=== PATIENT | female | born 1950 | race Caucasian/White ===

== ENCOUNTER 2020-05-05 08:57 | Emergency (ER) | payer MEDICARE ==
[~2020-05-05] VITALS: Ht 152.4 cm; Wt 68.1 kg
[~2020-05-05 08:57] MED LIST: AC325T PO; ASCO500C14 PO; ASPI-587 PO; FLUC200T45 PO; OLME20TA21 PO; PNT40TEC PO; SCR1T1 PO; THYR60TA2 PO; TRAZ-144 PO; UBID50TA3 PO
[2020-05-05 09:50] LABS: BASOPHILS % (AUTO) 0 % (0-10); EOSINOPHILS # (AUTO) 0.2 10^3/uL (0.0-0.3); EOSINOPHILS % (AUTO) 2 % (0-10); HEMATOCRIT 38 % (35-52); HEMOGLOBIN 11.8 g/dL (11.5-16.0); LYMPHOCYTES # (AUTO) 2.5 10^3/uL (1.0-4.0); LYMPHOCYTES % (AUTO) 24 % (12-44); MEAN CORPUSCULAR HEMOGLOBIN 28 pg (25-34); MEAN CORPUSCULAR HGB CONC 31 g/dL (32-36); MEAN CORPUSCULAR VOLUME 89 fL (80-99); MEAN PLATELET VOLUME 9.2 fL (9.0-12.2); MONOCYTES # (AUTO) 0.5 10^3/uL (0.0-1.0); MONOCYTES % (AUTO) 4 % (0-12); NEUTROPHILS # (AUTO) 7.4 10^3/uL (1.8-7.8); NEUTROPHILS % (AUTO) 70 % (42-75); PLATELET COUNT 318 10^3/uL (130-400); WHITE BLOOD COUNT 10.7 10^3/uL (4.3-11.0)
[2020-05-05 09:51] LABS: ALBUMIN 4.3 GM/DL (3.2-4.5); CHLORIDE 104 MMOL/L (98-107); POTASSIUM 3.9 MMOL/L (3.6-5.0); SODIUM 139 MMOL/L (135-145)
[2020-05-05 09:52] LABS: CALCIUM 9.3 MG/DL (8.5-10.1)
[2020-05-05 09:54] LABS: GLUCOSE 141 MG/DL (70-105); TOTAL PROTEIN 7.6 GM/DL (6.4-8.2)
[2020-05-05 09:55] LABS: BILIRUBIN,TOTAL 0.3 MG/DL (0.1-1.0); CARBON DIOXIDE 24 MMOL/L (21-32)
[2020-05-05 09:57] LABS: ALKALINE PHOSPHATASE 99 U/L (40-136); GFR ESTIMATED 40
[2020-05-05 09:58] LABS: BUN/CREATININE RATIO 12
--- NOTE | 2020-05-05 09:59 | Diagnostic Imaging Report ---
EXAMINATION: Chest radiograph, portable AP view. DATE: 05/05/2020 9:56 AM INDICATION: 69-year-old female, hypertension. COMPARISON: May 03, 2012. FINDINGS: Stable overall appearance of the cardiomediastinal silhouette. There is no identified pneumothorax. There is no large pleural effusion. There is no identified focal airspace consolidation. IMPRESSION: No identified acute cardiopulmonary abnormality. Dictated by: Dictated on workstation # [id number]
[2020-05-05 10:00] LABS: ALANINE AMINOTRANSFERASE 14 U/L (0-55); MAGNESIUM 2.1 MG/DL (1.6-2.4)
[2020-05-05] MEDS ORDERED: amLODIPine 5 MG (NORVASC) TAB PO ONE (10:30)
--- NOTE | 2020-05-05 10:34 | ED Cardiac General ---
History of Present Illness General Chief Complaint: Cardiac/General Problems Stated Complaint: HIGH BLOOD PRESSURE,FEELING WEIRD Nursing Triage Note: AMB TO ROOM REPORTS HAS CNCERNS WITH HER BP SINCE WEDNESDAY . HER SYSTOLIC HAS BEEN IN 180 WAS TAKEN OFF LORSARTIN 25MG DID TAKE TODAY. CONCERN BECAUSE SHE HAS POOR KIDNEY FUNCTION AND JUST NOT FEELING WELL. Source: patient Exam Limitations: no limitations History of Present Illness Date Seen by Provider: May 05, 2020 Time Seen by Provider: 09:34 Initial Comments Here with report of feeling weird this morning and found her systolic blood pressure to be 180. She did take a half a dose of her losartan this morning. She was worried about her kidney function as she has history of kidney disease and has had problems with that previously. She was seen at her providers office earlier this week for concerns of UTI and that was found to be negative although did have a yeast infection. She did take the medicine for that. Initial blood pressure in the 160s here. Denies chest pain, nausea, vomiting, weakness or other concerns otherwise. Timing/Duration: changing over time, intermittent, 1-2 days Location: other (No pain) Activities at Onset: none Prior CP/Workup: stress test Modifying Factors: improves with rest NTG SL SCHOOL GUIDANCE COUNSELOR: No ASA po SCHOOL GUIDANCE COUNSELOR: No Associated Systoms: No Chest Pain, No Cough, No Fever/Chills, No Nausea/Vomiting, No Shortness of Air, No Weakness Allergies and Home Medications Allergies Coded Allergies: Penicillins (Unverified Allergy, Unknown, 09/21/14) nitrofurantoin (Unverified Allergy, Unknown, 10/25/13) Home Medications Ascorbic Acid 500 Mg Capsule.sa, 500 MG PO DAILY, (Reported) Thyroid,Pork 60 Mg Tablet, 60 MG PO DAILY, (Reported) Trazodone Hcl 50 Mg Tablet, 100 MG PO DAILY, (Reported) Ubidecarenone 50 Mg Tab.chew, 50 MG PO DAILY, (Reported) Patient Home Medication List Home Medication List Reviewed: Yes Review of Systems Review of Systems Constitutional: see HPI; No chills, No fever EENTM: No Symptoms Reported Respiratory: Denies Cough, Denies Shortness of Air Cardiovascular: Denies Chest Pain, Denies Edema Gastrointestinal: Denies Abdominal Pain, Denies Nausea, Denies Vomiting Genitourinary: See HPI Musculoskeletal: no symptoms reported Skin: no symptoms reported Psychiatric/Neurological: See HPI, Anxiety; Denies Headache All Other Systems Reviewed Negative Unless Noted: Yes Past Qhitbmz-Inoedi-Ttcpjo Hx Past Med/Social Hx: Reviewed Nursing Past Med/Soc Hx Patient Social History Alcohol Use: Denies Use Smoking Status: Never a Smoker Recent Infectious Disease Expo: No Past Medical History Surgeries: No Respiratory: No Cardiac: No Neurological: No Genitourinary: No Gastrointestinal: No Gastroesophageal Reflux Musculoskeletal: No Endocrine: Yes Psychosocial: No Family Medical History Reviewed Nursing Family Hx No Pertinent Family Hx Physical Exam Vital Signs Vital Signs - First Documented 05/05/20 09:06 Temp 36.9 Pulse 73 Resp 18 B/P (MAP) 168/81 (110) Pulse Ox 100 O2 Delivery Room Air Capillary Refill : Less Than 3 Seconds Height, Weight, BMI Height: 5'" Weight: 157lbs. oz. 71.826406yp; 29.00 BMI Method: General Appearance: No Apparent Distress, WD/WN HEENT: PERRL/EOMI, Pharynx Normal Neck: Non Tender, Supple Respiratory: Lungs Clear, Normal Breath Sounds Cardiovascular: Regular Rate, Rhythm, No Murmur Gastrointestinal: Non Tender, Soft Extremity: Normal Range of Motion, Non Tender, No Calf Tenderness, No Pedal Edema Neurologic/Psychiatric: Alert, Oriented x3 Skin: Normal Color, Warm/Dry Progress/Results/Core Measures Results/Orders Lab Results Laboratory Tests Test 05/05/20 09:21 Range/Units White Blood Count 10.7 4.3-11.0 10^3/uL Red Blood Count 4.26 3.80-5.11 10^6/uL Hemoglobin 11.8 11.5-16.0 g/dL Hematocrit 38 35-52 % Mean Corpuscular Volume 89 80-99 fL Mean Corpuscular Hemoglobin 28 25-34 pg Mean Corpuscular Hemoglobin Concent 31 L 32-36 g/dL Red Cell Distribution Width 13.6 10.0-14.5 % Platelet Count 318 130-400 10^3/uL Mean Platelet Volume 9.2 9.0-12.2 fL Immature Granulocyte % (Auto) 1 % Neutrophils (%) (Auto) 70 42-75 % Lymphocytes (%) (Auto) 24 12-44 % Monocytes (%) (Auto) 4 0-12 % Eosinophils (%) (Auto) 2 0-10 % Basophils (%) (Auto) 0 0-10 % Neutrophils # (Auto) 7.4 1.8-7.8 10^3/uL Lymphocytes # (Auto) 2.5 1.0-4.0 10^3/uL Monocytes # (Auto) 0.5 0.0-1.0 10^3/uL Eosinophils # (Auto) 0.2 0.0-0.3 10^3/uL Basophils # (Auto) 0.0 0.0-0.1 10^3/uL Immature Granulocyte # (Auto) 0.1 0.0-0.1 10^3/uL Sodium Level 139 135-145 MMOL/L Potassium Level 3.9 3.6-5.0 MMOL/L Chloride Level 104 98-107 MMOL/L Carbon Dioxide Level 24 21-32 MMOL/L Anion Gap 11 5-14 MMOL/L Blood Urea Nitrogen 16 7-18 MG/DL Creatinine 1.30 0.60-1.30 MG/DL Estimat Glomerular Filtration Rate 40 BUN/Creatinine Ratio 12 Glucose Level 141 H 70-105 MG/DL Calcium Level 9.3 8.5-10.1 MG/DL Corrected Calcium 9.1 8.5-10.1 MG/DL Magnesium Level 2.1 1.6-2.4 MG/DL Total Bilirubin 0.3 0.1-1.0 MG/DL Aspartate Amino Transf (AST/SGOT) 19 5-34 U/L Alanine Aminotransferase (ALT/SGPT) 14 0-55 U/L Alkaline Phosphatase 99 40-136 U/L Troponin I < 0.028 <0.028 NG/ML Total Protein 7.6 6.4-8.2 GM/DL Albumin 4.3 3.2-4.5 GM/DL My Orders Orders - RALF COLE MD Ed Iv/Invasive Line Start (05/05/20 09:42) Ekg Tracing (05/05/20 09:42) Monitor-Rhythm Ecg Trace Only (05/05/20 09:42) Cbc With Automated Diff (05/05/20 09:42) Comprehensive Metabolic Panel (05/05/20 09:42) Magnesium (05/05/20 09:42) Troponin I (05/05/20 09:42) Chest 1 View, Ap/Pa Only (05/05/20 09:42) Vital Signs/I&O 05/05/20 09:06 Temp 36.9 Pulse 73 Resp 18 B/P (MAP) 168/81 (110) Pulse Ox 100 O2 Delivery Room Air Blood Pressure Mean: 110 Progress Progress Note : Progress Note Seen and evaluated. IV, labs, EKG and chest x-ray ordered. Monitor patient. 1030: No acute findings overall. Serum creatinine 1.30 with GFR at 40. Blood pressure was 160s systolic but dropped to 147 systolic on her losartan. We will switch her to amlodipine and she will follow-up with Dr. Ramirez. I will write her for 2 weeks of amlodipine [address] Ramirez can adjust from there. I will send a copy of the chart to her. Overall feeling better. Discharged home with return precautions. Patient verbalized understanding of instructions and agreement with plan. Initial ECG Impression Date: May 05, 2020 Initial ECG Impression Time: 09:28 Initial ECG Rate: 73 Initial ECG Rhythm: Normal Sinus Comment Sinus rhythm with normal axis. No evidence of ST elevation FL. No previous available for comparison. Interpreted by me. Diagnostic Imaging Diagonstic Imaging: Xray Plain Films/CT/US/NM/MRI: chest Comments [facility], [facility]. [place], [place] NAME: CRISTOPHER MARTINEZ [facility] REC#: [id number] PT STATUS: REG ER : 1950 PHYSICIAN: RALF COLE MD ADMIT DATE: 05/05/20/ER Signed Date of Exam:05/05/20 CHEST 1 VIEW, AP/PA ONLY EXAMINATION: Chest radiograph, portable AP view. DATE: 05/05/2020 9:56 AM INDICATION: 69-year-old female, hypertension. COMPARISON: May 03, 2012. FINDINGS: Stable overall appearance of the cardiomediastinal silhouette. There is no identified pneumothorax. There is no large pleural effusion. There is no identified focal airspace consolidation. IMPRESSION: No identified acute cardiopulmonary abnormality. Dictated by: Dictated on workstation # [id number] Dict: 05/05/20 0957 Trans: 05/05/20 100 [facility] [id number] Interpreted by: SUZANNE DAVID MD Electronically signed by: SUZANNE DAVID MD 05/05/20 1001 Departure Impression Primary Impression: Uncontrolled hypertension Disposition: HOME, SELF-CARE Condition: Improved Departure-Patient Inst. Decision time for Depature: 10:39 Referrals: JACK RAMIREZ MD (PCP/Family) Primary Care Physician Patient Instructions: High Blood Pressure (DC) Add. Discharge Instructions: All discharge instructions reviewed with patient and/or family. Voiced understanding. Stop losartan. Take other medications as directed. Follow-up with Dr. Ramirez for recheck and further evaluation. Call her office tomorrow morning for rechec k appointment. Return for worse pain, fever, vomiting, weakness, breathing problems or other concerns as needed. Scripts Amlodipine Besylate (Amlodipine Besylate) 5 Mg Tablet 5 MG PO DAILY for 14 Days, #14 TAB 0 Refills Prov: RALF COLE MD 05/05/20 Copy Copies To 1: JACK RAMIREZ MD, TIMOTHY D MD May 05, 2020 10:34
[2020-05-05] MEDS ORDERED: AMLO-250 PO (10:40)
[2020-05-05 10:47] VITALS: BP 151/81
== END 2020-05-05 10:59 | disposition home or self-care (01) ==
LOC: EDUNIT# 08:57 → ER 08:59
DX: I10 Essential (primary) hypertension (principal); Z88.0 Allergy status to penicillin; Z88.8 Allergy status to other drugs, medicaments and biological substances
CPT/HCPCS: 36415; 71045; 80053; 83735; 84484; 85025; 93005; 93041

== ENCOUNTER → 2020-07-11 | Outpatient (CLI) | payer SELFPAY ==
[~2020-07-11] MED LIST changes: +AMLO-250 PO
--- NOTE | 2020-07-11 13:20 | Diagnostic Imaging Report ---
CT cardiac calcium score INDICATION: Hypertension hyperlipidemia There are no prior CT cardiac calcium scores exams available for comparison. Routine images of the heart were obtained. The total calcium score is 2.17 (please see attached report) The images through the thorax show that the heart is within normal limits for size. The aorta is not abnormally dilated. There is no obvious mediastinal or hilar adenopathy. The lungs, where visualized are generally clear. There is no sign of failure, pneumonia or a pleural effusion. There is no parenchymal lung mass identified either. The images through the upper abdomen again show the prominent hiatal hernia that was identified on the prior CT abdomen/pelvis exam of 09/21/2014. The hernia measures approximately 5.3 x 6.3 cm. There is no acute abnormality of the visualized upper abdomen. The bone windows are unremarkable for a fracture or for a destructive lesion. There is no obvious breast mass. IMPRESSION: 1. The total calcium score is 2.17. Please see attached report. 2. There is no acute cardiopulmonary abnormality identified. 3. The large hiatal hernia seen previously is again evident and not significantly changed. Dictated by: Dictated on workstation # [id number]
== END ==
LOC: RAD FS 10:18
PROVIDERS: ATTEND Nurse Practitioner Family
DX: I10 Essential (primary) hypertension (principal); E78.5 Hyperlipidemia, unspecified; K44.9 Diaphragmatic hernia without obstruction or gangrene
CPT/HCPCS: 75571

== ENCOUNTER → 2021-03-21 | Outpatient (CLI) | payer MEDICARE ==
[2021-03-21 09:52] LABS: HEMATOCRIT 38 % (35-52); HEMOGLOBIN 12.2 g/dL (11.5-16.0); MEAN CORPUSCULAR HEMOGLOBIN 28 pg (25-34); MEAN CORPUSCULAR HGB CONC 32 g/dL (32-36); MEAN CORPUSCULAR VOLUME 89 fL (80-99); MEAN PLATELET VOLUME 9.2 fL (9.0-12.2); PLATELET COUNT 283 10^3/uL (130-400); WHITE BLOOD COUNT 10.2 10^3/uL (4.3-11.0)
[2021-03-21 10:14] LABS: ALBUMIN 4.3 GM/DL (3.2-4.5)
[2021-03-21 10:15] LABS: CHLORIDE 106 MMOL/L (98-107); SODIUM 139 MMOL/L (135-145)
[2021-03-21 10:16] LABS: CALCIUM 9.6 MG/DL (8.5-10.1)
[2021-03-21 10:17] LABS: GLUCOSE 126 MG/DL (70-105); TOTAL PROTEIN 7.9 GM/DL (6.4-8.2)
[2021-03-21 10:18] LABS: CARBON DIOXIDE 21 MMOL/L (21-32)
[2021-03-21 10:19] LABS: BILIRUBIN,TOTAL 0.4 MG/DL (0.1-1.0)
[2021-03-21 10:20] LABS: ALKALINE PHOSPHATASE 93 U/L (40-136)
[2021-03-21 10:21] LABS: CREATININE SERUM 1.71 MG/DL (0.60-1.30); GFR ESTIMATED 29
[2021-03-21 10:22] LABS: BUN/CREATININE RATIO 18
[2021-03-21 10:23] LABS: ALANINE AMINOTRANSFERASE 38 U/L (0-55)
[2021-03-21 10:24] LABS: CREATINE KINASE 65 U/L (29-168)
--- NOTE | 2021-03-21 11:22 | Diagnostic Imaging Report ---
INDICATION: Chest pain EXAMINATION: 2 view chest 03/21/2021 COMPARISON: 05/03/2012 FINDINGS: There is a small to moderate hiatal hernia. The lungs and pleural spaces clear. There is no pneumothorax. The heart and pulmonary vasculature normal. IMPRESSION: 1. No acute cardiopulmonary process. Dictated by: Dictated on workstation # [id number]
== END ==
LOC: CARD 10:00
PROVIDERS: ATTEND Nurse Practitioner Family
DX: R07.9 Chest pain, unspecified (principal)
CPT/HCPCS: 36415; 71046; 80053; 82550; 84484; 85027; 93005

== ENCOUNTER → 2021-08-21 | Outpatient (CLI) | payer MEDICARE ==
--- NOTE | 2021-08-21 14:34 | Diagnostic Imaging Report ---
EXAMINATION: CT abdomen and pelvis without contrast. TECHNIQUE: Multiple contiguous axial images were obtained through the abdomen and pelvis without the use of intravenous contrast. All CT scans use one or more of the following dose optimizing techniques: Automated exposure control, MA and/or KvP adjustment based on patient size and exam type or iterative reconstruction. HISTORY: Nausea. COMPARISON: 09/21/2014. FINDINGS: Lung bases: The lung bases are clear. Solid organs: The liver is normal. The gallbladder is normal. There is no biliary ductal dilation. Pancreas is normal. Spleen is normal. Adrenal glands are normal. There are nonobstructing left renal calculi measuring up to 0.4 cm. No hydronephrosis. There is a right renal cyst with peripheral layering calcification. This requires no follow-up. Bowel: There is a moderate hiatal hernia. No bowel obstruction. There is scattered colonic diverticulosis without findings of diverticulitis. No findings of acute appendicitis. Peritoneum: There is no intraperitoneal free fluid or free air. No suspicious lymphadenopathy. Vasculature: Calcification of the aorta without aneurysm. Musculoskeletal: No suspicious osseous lesion or compression fracture. Pelvis: The uterus is surgically absent. No adnexal mass. The urinary bladder is normal. IMPRESSION: 1. No acute abnormality in the abdomen or pelvis. 2. Nonobstructing left renal calculi measuring up to 0.4 cm. 3. Moderate hiatal hernia. 4. Colonic diverticulosis. Dictated by: Dictated on workstation # [id number]
== END ==
LOC: RAD 12:53
PROVIDERS: ATTEND Nurse Practitioner Family
DX: N20.0 Calculus of kidney (principal); K44.9 Diaphragmatic hernia without obstruction or gangrene; K57.30 Diverticulosis of large intestine without perforation or abscess without bleeding
CPT/HCPCS: 74176

== ENCOUNTER → 2021-12-01 | Outpatient (CLI) | payer MEDICARE ==
--- NOTE | 2021-12-01 14:27 | Diagnostic Imaging Report ---
PROCEDURE: US carotid duplex, bilateral. TECHNIQUE: Multiple real-time grayscale images were obtained over the carotid arteries in various projections, bilaterally. Additional spectral analysis and color Doppler duplex images were also obtained. INDICATION: Hypertension and headaches. FINDINGS: There are no focally elevated velocities in either internal carotid artery. The ICA/CCA ratios are within normal limits, bilaterally. There is antegrade flow in the vertebral arteries, bilaterally. Grayscale images demonstrate minimal carotid plaque, bilaterally. IMPRESSION: Minimal bilateral carotid plaque however spectral analysis shows no evidence of a hemodynamically significant stenosis in either internal carotid artery. Parameters based on the consensus panel Best-Scale and Doppler ultrasound criteria published January 2003, Radiology, Volume 229. DOPPLER (peak systolic velocity M/S Right Left CCA 0.89 0.75 ICA Proximal 0.73 0.54 ICA Mid 0.83 0.66 ICA Distal 0.90 0.76 RATIO 1.42 1.01 ECA 0.96 0.90 VERT 0.51 0.49 Dictated by: Dictated on workstation # [id number]
== END ==
LOC: RAD 13:30
PROVIDERS: ATTEND Nurse Practitioner Family
DX: E78.5 Hyperlipidemia, unspecified (principal); I10 Essential (primary) hypertension; R42 Dizziness and giddiness; R51.9 Headache, unspecified
CPT/HCPCS: 93880

== ENCOUNTER → 2022-01-07 | Outpatient (CLI) | payer MEDICARE | LOC: CARD 09:55 | PROVIDERS: ATTEND Internal Medicine Cardiovascular Disease | DX: I10 Essential (primary) hypertension (principal); I25.10 Atherosclerotic heart disease of native coronary artery without angina pectoris | CPT/HCPCS: 93306 ==

== ENCOUNTER → 2022-01-27 | Outpatient (CLI) | payer MEDICARE ==
[~2022-01-27] MED LIST changes: +CATHETER FLUSH 10 ML SYR IVP PRN
[2022-01-27 08:10] VITALS: BP 145/69
--- NOTE | 2022-01-27 12:48 | Cardiology Stress Test Report ---
Stress Test Report Date of Procedure/Referring: Date of Procedure: Jan 27, 2022 PCP Jack Ramirez MD Admitting Physician Admitting Physician: Attending Physician: Kolby Antunez MD Baseline Heart Rate: 67 Baseline Blood Pressure: Blood Pressure Systolic: 145 Blood Pressure Diastolic: 69 Vital Signs Date Time Temp Pulse Resp B/P (MAP) Pulse Ox O2 Delivery O2 Flow Rate FiO2 01/27/22 08:10 67 145/69 (94) Baseline Vital Signs Vital Signs Date Time Temp Pulse Resp B/P (MAP) Pulse Ox O2 Delivery O2 Flow Rate FiO2 01/27/22 08:10 67 145/69 (94) Baseline EKG: Baseline EKG: NSR Summary: After explaining the procedure and details to the patient, she signed the consent and was brought to the stress nuclear laboratory. Patient exercised on standard Christian protocol, EKG, heart rate and blood pressure were monitored continuously, resting and stress doses of radio tracer were injected, imaging was acquired and reviewed in the short axis, horizontal long axis and vertical long axis views Patient was able to exercise for a total of 6.30 minutes on Christian protocol, METs 7.1 Maximum heart rate 123 Maximum blood pressure 164/41 Stress EKG, Minimal nondiagnostic changes Recovery EKG, Return to baseline TID: 1.21 SSS: 0 SDS: 0 EF: 75 Conclusion: 1. Fair exercise tolerance for a total of 6 minutes and 30 seconds on standard Christian protocol, 7.1 METS achieving 83% of maximum expected heart rate 2. Nondiagnostic EKG changes with exercise return to baseline during recovery 3. Transient ischemic dilatation 1.21. 4. No significant ischemia or infarction on SPECT images 5. Normal left ventricular size, ejection fraction 75% Copy Copies To 1: JACK RAMIREZ MD, BASHAR J MD Jan 27, 2022 12:48
== END ==
LOC: CARD 07:00
PROVIDERS: ATTEND Internal Medicine Cardiovascular Disease
DX: I10 Essential (primary) hypertension (principal); I25.10 Atherosclerotic heart disease of native coronary artery without angina pectoris
CPT/HCPCS: 78452; 93017; A9502